=== PATIENT | female | born 1980 | race American Indian/Alaskan Native ===

== ENCOUNTER 2021-08-07 09:47 | Emergency (ER) | payer BC ==
[~2021-08-07] VITALS: Ht 157.5 cm; Wt 77.1 kg
== END 2021-08-07 14:44 | disposition home or self-care (01) ==
LOC: ER 09:47
DX: S76.311A Strain of muscle, fascia and tendon of the posterior muscle group at thigh level, right thigh, initial encounter (principal); Y93.89 Activity, other specified; Y92.832 Beach as the place of occurrence of the external cause